=== PATIENT | male | born 1970 | race American Indian/Alaskan Native ===

== ENCOUNTER 2018-05-29 18:13 | Emergency (ER) | payer SELFPAY ==
[2018-05-29] MEDS ORDERED: NACL 0.9% 1000 ML 1,000 ML IV ONE (18:26)
[2018-05-29] MEDS ORDERED: SOLU-Medrol IV ONE (18:26)
[2018-05-29] MEDS ORDERED: BENADRYL IV STA (18:26)
[2018-05-29] MEDS ORDERED: PEPCID IV ONE ×2 (18:27→18:29)
[2018-05-29] MEDS ORDERED: BENADRYL ONE (18:29)
[2018-05-29] MEDS ORDERED: SOLU-Medrol ONE (18:29)
--- NOTE | 2018-05-29 18:30 | Emergency Department Report ---
ED Allergic Reaction HPI - General Stated complaint: ALLERGIC REACTION Time Seen by Provider: 05/29/18 18:26 Source: patient, RN notes reviewed Limitations: No Limitations - History of Present Illness Complaint: allergic reaction, facial swelling Exposure: other (diet his north with a new hair dye agent afterwards, she did develop some burning sensation. This past) Symptoms: rash, itching, facial swelling, lip swelling Severity: mild Treatment Prior to Arrival: none Previous Allergy History: none - Related Data Previous Rx's Medication Instructions Recorded Last Taken Type Famotidine [Pepcid] 40 mg PO DAILY #14 tablet 05/29/18 Unknown Rx Mometasone Furoate [Elocon] 45 gm TP BID #1 cream..g. 05/29/18 Unknown Rx hydrOXYzine HCL [Atarax] 25 mg PO Q6HR PRN #20 tablet 05/29/18 Unknown Rx predniSONE [Deltasone] 50 mg PO QDAY #5 tab 05/29/18 Unknown Rx Allergies Allergy/AdvReac Type Severity Reaction Status Date / Time No Known Allergies Allergy Unverified 05/29/18 18:36 ED Review of Systems ROS: Stated complaint: ALLERGIC REACTION Other details as noted in HPI Constitutional: denies: chills, fever Eyes: denies: eye pain, eye discharge, vision change ENT: denies: ear pain, throat pain Respiratory: denies: cough, shortness of breath, wheezing Cardiovascular: denies: chest pain, palpitations Endocrine: no symptoms reported Gastrointestinal: denies: abdominal pain, nausea, diarrhea Genitourinary: denies: urgency, dysuria Musculoskeletal: denies: back pain, joint swelling, arthralgia Skin: rash. denies: lesions Neurological: denies: headache, weakness, paresthesias Psychiatric: denies: anxiety, depression Hematological/Lymphatic: denies: easy bleeding, easy bruising ED Past Medical Hx - Medications Home Medications: Home Medications Medication Instructions Recorded Confirmed Last Taken Type Famotidine [Pepcid] 40 mg PO DAILY #14 tablet 05/29/18 Unknown Rx Mometasone Furoate [Elocon] 45 gm TP BID #1 cream..g. 05/29/18 Unknown Rx hydrOXYzine HCL [Atarax] 25 mg PO Q6HR PRN #20 tablet 05/29/18 Unknown Rx predniSONE [Deltasone] 50 mg PO QDAY #5 tab 05/29/18 Unknown Rx ED Physical Exam - General General appearance: alert, in no apparent distress - Head Head exam: Present: atraumatic, normocephalic - Eye Eye exam: Present: normal appearance - ENT ENT exam: Present: mucous membranes moist, TM's normal bilaterally, other (, or midline, normal size. No stridor. Airway is patent. No drooling. Normal voice. Normal speech) - Neck Neck exam: Present: normal inspection, full ROM - Respiratory Respiratory exam: Present: normal lung sounds bilaterally. Absent: respiratory distress, wheezes, rales, rhonchi, chest wall tenderness, accessory muscle use, decreased breath sounds, prolonged expiratory - Cardiovascular Cardiovascular Exam: Present: regular rate, normal rhythm. Absent: systolic murmur, diastolic murmur, rubs, gallop - GI/Abdominal GI/Abdominal exam: Present: soft, normal bowel sounds - Rectal Rectal exam: Present: deferred - Extremities Exam Extremities exam: Present: normal inspection - Back Exam Back exam: Present: normal inspection - Neurological Exam Neurological exam: Present: alert, oriented X3 - Psychiatric Psychiatric exam: Present: normal affect, normal mood - Skin Skin exam: Present: warm, dry, intact, normal color, other (maculopapular weeping rash in the area of his north with some mild swelling to his left). Absent: rash ED Course Vital Signs 05/29/18 18:33 Temperature 98.9 F Pulse Rate 115 H Respiratory 18 Rate Blood Pressure 141/97 O2 Sat by Pulse 98 Oximetry - Reevaluation(s) Reevaluation #1: 05/29/18 21:21 No wheezing, no shortness of breath. The discomfort to the rash is improving with utilization of the medication. Tongue and uvula still still midline. No stridors appreciated. No increased work of breathing. Discussed with patient the need to follow with primary care provider or [facility] and how to utilize the discharge medications. Advised that to complete completes provided medications as well to prevent the a reemergence of the histamine cascade Critical care attestation.: If time is entered above; I have spent that time in minutes in the direct care of this critically ill patient, excluding procedure time. ED Disposition Clinical Impression: Allergic reaction to chemical substance Disposition: - TO HOME OR SELFCARE Is pt being admited?: No Does the pt Need Aspirin: No Condition: Stable Instructions: Contact Dermatitis (ED), Allergies (ED) Prescriptions: Famotidine [Pepcid] 40 mg PO DAILY #14 tablet hydrOXYzine HCL [Atarax] 25 mg PO Q6HR PRN #20 tablet PRN Reason: Itching Mometasone Furoate [Elocon] 45 gm TP BID #1 cream..g. predniSONE [Deltasone] 50 mg PO QDAY #5 tab Referrals: PRIMARY CARE, [Primary Care Provider] - 3-5 Days [facility] [Provider Group] - 3-5 Days
[2018-05-29 18:35] VITALS: BP 141/97
== END 2018-05-29 21:30 | disposition home or self-care (01) ==
LOC: ED 18:13
DX: T78.49XA Other allergy, initial encounter (principal); R21 Rash and other nonspecific skin eruption; L29.9 Pruritus, unspecified; X58.XXXA Exposure to other specified factors, initial encounter
CPT/HCPCS: 96361; 96374; 96375; 99282; J1200; J2930; J7030